=== PATIENT | female | born 1990 | race Hispanic/Latino ===

== ENCOUNTER 2024-12-06 07:54 | Emergency (ER) | payer OTHER, SELFPAY ==
[2024-12-06 08:04] VITALS: BP 118/78
[2024-12-06 08:47] LABS: Hematocrit 36.2 % (37.0-47.0); Hemoglobin 11.7 g/dL (12.0-16.0); Mean Corp Hgb Conc. 32.3 g/dL (33.0-37.0); Mean Corpuscular Volume 88.1 fL (81.0-99.0); Nucleated Red Blood Cells % 0 %; Platelet Count 255 10^3/uL (130-400); Red Cell Dist. Width 12.3 % (11.5-14.5)
--- NOTE | 2024-12-06 08:56 | ED.GENMED ---
History of Present Illness
General
Chief Complaint: Chest Pain
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 And back pain. It is worse when she turns or moves and tender to palpation. It occurred when she woke up at 5 AM today. She did not take any medication or other
therapies for the pain. She has not had this before.)
Exam Limitations: none
Time Seen by Provider: 12/06/24 08:55
Nursing documentation reviewed up to this point in time: agreed with
History of Present Illness
History of Present Illness:
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
Past History
Past History
ED Past Medical History: Cancer (prolactinoma, pituitary tumor)
ED Past Surgical History: None
Social History
Tobacco: Non-smoker
Alcohol: None
Drug: None
Review of Systems
Review of Systems
Allergies reviewed?: Yes
All Other Systems: Not applicable
Constitutional: Reports no symptoms
EENT: Reports no symptoms
Respiratory: Reports no symptoms
Cardiac: Reports chest pain
ABD/GI: Reports no symptoms
: Reports no symptoms
Musculoskeletal: Reports back pain
Skin: Reports no symptoms
Neurological: Reports no symptoms
Endocrine: Reports no symptoms
Hematologic/Lymphatic: Reports no symptoms
Psychiatric: Reports no symptoms
Phy Exam
Physical Exam
Physical Exam:
Physical Exam
General: no apparent distress, not acutely ill
Neck: supple. no meningeal signs. normal posterior pharynx
Heart: s1/s2 regular rate and rhythm, no murmur. equal radial
pulses.
HEENT: Pupils equal round reactive to light, EOMI
Lungs: no acute respiratory distress. clear bilaterally, chest wall tender to palpation reproducing pain
back: tender to palpation at T10 paraspinal muscles
Abdomen: normal bowel sounds. not tender. no CVAT
Neuro: alert and oriented. no focal neurological deficits cranial nerves II through XII intact
Skin: no rash
Psychiatric: well kept. interactive and cooperative
Extremities: no edema. no calf tenderness. negative homans. good distal pulses
Scores
Heart Score for Chest Pain Patients
STEMI patient?: Not applicable
Course
Orders/Labs/Results
Orders:
Orders
12/06/24 07:55
Electrocardiogram (*1) Urgent
Reason for Study: Chest Pain
EKG- Treatment ONCE
12/06/24 08:40
Test Result ONCE
12/06/24 08:41
CMP [Comprehensive Metabolic Panel] Urgent
Complete Blood Count/With Diff Urgent
HCG, Serum Qualitative Screen Urgent
Lipase Urgent
Troponin I Urgent
12/06/24 09:11
Ketorolac [Toradol] 15 mg IV NOW STA
12/06/24 09:12
CR Chest - 2 Views Urgent
Comment:
Reason For Exam: chest and back pain since this am
Abnormal Lab Results
12/06/24
08:41
WBC 4.7 L 10^3/uL
(4.8-10.8)
RBC 4.11 L 10^6/uL
(4.20-5.40)
Hgb 11.7 L g/dL
(12.0-16.0)
Hct 36.2 L %
(37.0-47.0)
MCHC 32.3 L g/dL
(33.0-37.0)
MPV 11.2 H fL
(7.4-10.4)
Neutrophils % 39.8 L %
(42.2-75.2)
Monocytes % 9.4 H %
(1.7-9.3)
Eosinophils % 9.2 H %
(0-6)
Chloride 110 H mmol/L
(98-107)
Glucose 101 H mg/dl
(70-99)
12/06/24 08:41
12/06/24 08:41
Vital Signs
Initial and Last Documented VS:
Initial Vital Signs
Temp Pulse Resp BP Pulse Ox
98.7 F 58 18 118/78 99
12/06/24 08:04 12/06/24 08:04 12/06/24 08:04 12/06/24 08:04 12/06/24 08:04
Last Documented Vital Signs
Temp Pulse Resp BP Pulse Ox
98.7 F 57 15 93/67 99
12/06/24 08:04 12/06/24 11:00 12/06/24 11:00 12/06/24 10:00 12/06/24 11:00
MDM/Problems Addressed
Differential Diagnosis Includes:
Pulmonary embolism, ACS, PE, aortic dissection
MDM/Problems Addressed:
34-year-old female with musculoskeletal chest pain. Do not suspect ACS, PE or aortic dissection. Stable for discharge. Chest x-ray normal.
*Radiology
Radiology exam reviewed: radiology read reviewed (Chest x-ray no acute findings)
*Pulse Oximetry
SaO2: 99
Oxygen Mode of Delivery: Room air
Patient hypoxic: no
*EKG
Interpreted by ED Provider?: Yes
EKG Intrepretation Date: 12/06/24
EKG Intrepretation Time: 08:00
Interpretation: abnormal
Comparison EKG: no comparison EKG present
Heart Rate: 54
Rate: bradycardiac
Rhythm: sinus
Williams: normal axis
Interval: normal interval
QRS Pattern: normal QRS
Ischemia: no ischemia
*Kst Operator Interpretation
Rate: normal
Interpretation: normal
Heart Rate: 68
Rhythm: sinus
*Critical Care Note
Total Time (30-74mins, 75-104mins- exclusive of procedures): Not Applicable
Data Reviewed
Further Testing Considered But Not Given:
CT chest not indicated
Patient Management
Social determinants of health affecting care: Living situation and Strong social support
Escalation/DeEscalation of care consider admission/obs:
Admit not indicated
ED Attending Note
-
Portions of this chart may have been created with voice recognition software.� Occasional wrong word or��sound alike� substitutions may have occurred due to the inherent limitations of voice recognition software.
Discharge Plan
Departure
Patient Disposition: Home (Routine Discharge)
Date of Disposition: 12/06/24
Time of Disposition: 11:11
Patient with high blood pressure during this ER visit?: No
Condition: Good
Discharge Problem:
Acute chest wall pain
Instructions: Chest Pain That Is Not Caused by the Heart (DC)
Referrals:
NONE,* [Family Provider, Internal Medicine]
Activity Restrictions/Additional Instructions:
Acuda a cuba consulta de seguimiento con alexander m�dico de cabecera en 3 a 5 d�as. Regrese si tiene alguna inquietud. Vance ibuprofeno 600 mg cada 6 a 8 horas seg�n sea necesario para el dolor. [place] con alimentos.
Interventions
Interventions:
*Risk Screen - Suicide Last Done: 12/06/24 08:04
*General Assessment Last Done: 12/06/24 08:04
*Neglect/Abuse Screening Last Done: 12/06/24 08:04
*ED- Fall Risk Assessment Last Done: 12/06/24 08:20
*ED COVID-19 Vaccine History Last Done: 12/06/24 08:31
*Nursing Disposition Last Done: 12/06/24 11:28
ED- Cardiac Assessment Last Done: 12/06/24 08:30
Discharge Date and Time
Discharge Date/Time: 12/06/24 11:40
Print Language: [place]IZ[place]
[2024-12-06 09:00] LABS: HCG, Serum Qualitative Screen Negative
[2024-12-06 09:03] LABS: ALT (SGPT) 19 U/L (0-35); AST (SGOT) 17 U/L (14-36); Alkaline Phosphatase 72 U/L (38-126); Blood Urea Nitrogen 7 mg/dl (7-17); Calcium 9.2 mg/dl (8.4-10.2); Chloride 110 mmol/L (98-107); Glucose 101 mg/dl (70-99); Lipase 128 U/L (23-300); Potassium 4.0 mmol/L (3.5-5.1); Sodium 142 mmol/L (135-145); Total Protein 7.2 g/dl (6.3-8.2); eGFR > 60.00
[2024-12-06] MEDS: TORADOL 15 MG IV (09:22)
[2024-12-06 09:25] LABS: Albumin 4.1 g/dl (3.5-5.0); Carbon Dioxide 26 mmol/L (22-30)
[2024-12-06 09:29] LABS: Troponin I < 0.012 ng/ml
[2024-12-06 09:39] VITALS: BP 96/61
[2024-12-06 10:00] VITALS: BP 93/67
== END 2024-12-06 11:40 | disposition home or self-care (01) ==
LOC: EMR 07:54
PROVIDERS: Emergency Medicine; EMERGENCY PHYSICIAN Emergency Medicine
DX: R07.89 Other chest pain (principal)
CPT/HCPCS: 99285; 96374; 71046; 80053; 83690; 84484; 84703; 85025; 93005